=== PATIENT | male | born 1990 | race Caucasian/White ===

== ENCOUNTER 2019-04-24 19:30 | Emergency (ER) | payer OTHER, SELFPAY ==
[2019-04-24 19:45] VITALS: BP 150/95; PULSE 82; RESP 16; TEMP 36.8; O2SAT 99
--- NOTE | 2019-04-24 20:12 | ED.GENADULT ---
HPI - General Adult General Chief complaint: Nausea/Vomiting/Diarrhea Stated complaint: Vomiting/Diarrhea/Cough Time Seen by Provider: 04/24/19 20:12 Source: patient and RN notes reviewed Mode of arrival: ambulatory Limitations: no limitations History of Present Illness HPI narrative: 28-year-old male presents with complaints of body aches, intermittent abdominal pain/cramping, diarrhea, decrease appetite, and nausea for 1 day. Vomiting started this morning at approximately 01:30. Had about 6-7 episodes of emesis today without blood or coffee ground contents, last approximately @10:00am has had intermittently nausea. Diarrhea with intermittently abdominal pain/cramping, approximately 10 episodes of watery dark brown stools without blood. Exacerbating factors consist of eating and drinking. LBM 10:00am today, brown liquid stool without blood. Denies fever or chills. Denies headache, dizziness, back pain, and dysuria. Tolerating po liquids well. Remains active. Some parts of this dictation were generated by voice recognition software and may contain typographical and/or grammatical inaccuracies. Related Data Allergies Allergy/AdvReac Type Severity Reaction Status Date / Time No Known Allergies Allergy Unverified 06/18/18 15:39 Review of Systems Review of Systems: Narrative: CONSTITUTIONAL: Denies fever, chills, sweats. EYES: Denies visual changes, redness, discharge. ENT: Denies rhinorrhea, congestion, sore throat, otalgia. CARDIOVASCULAR: Denies chest pain, palpitations, edema. RESPIRATORY: Denies dyspnea, wheezing, cough. GASTROINTESTINAL: Complains of intermittent abdominal pain/cramping, vomiting, diarrhea, nausea, and decrease appetite. GENITOURINARY: Denies dysuria, hematuria, abnormal discharge. SKIN: Denies rash or itching. MUSCULOSKELETAL: Denies acute back pain, joint pain, or myalgia. NEUROLOGIC: Denies numbness or focal weakness. PSYCHIATRIC: Denies anxiety or depression. All systems reviewed & are unremarkable except as noted in HPI and below. [facility] Past Medical History Medical History (Updated 04/25/19 @ 00:01 by Lee Fajardo) Hypertension Surgical History Surgical History (Updated 04/24/19 @ 20:19 by KEREN Myers) History of hip surgery Right hip to due to septic hip Family History Family History (Updated 04/24/19 @ 20:19 by KEREN Myers) Other No significant family history Social History Social History (Updated 04/24/19 @ 20:20 by KEREN Myers) Smoking packs per day: 1 Smoking cigarettes per day: 20.0 Years smoked: 9 Smoking pack-years: 9.00 Smoking status: Current every day smoker Second hand tobacco smoke exposure: No Alcohol intake: current Alcohol use details: Occasional Substance use: current Substance use type: marijuana Living arrangements: with family Occupation/Education: occupation Gender identity (if verbalized by the patient): Male Comments At time of signature, I have reviewed and agree with nursing past medical, surgical, social, and family history. Please see nursing chart for further information. There is no relevant family history pertinent to the presenting complaint. Exam Narrative: Exam Narrative: GENERAL: This is a well-nourished, well-developed patient, in no apparent distress. Talks in full sentences without deficits and ambulates with steady gait without dyspnea. HEAD: normocephalic, atraumatic. EYES: PERRL. Sclera clear/white. Vision is grossly intact. MOUTH: Moist mucous membranes. THROAT: Mucous membranes moist, posterior pharynx clear. NECK: Neck supple, non-tender without lymphadenopathy, masses or thyromegaly. CARDIOVASCULAR: Regular rate and rhythm without murmurs, gallops, or rubs. RESPIRATORY: Clear to auscultation. Breath sounds equal bilaterally. No wheezes, rales, or rhonchi. GASTROINTESTINAL: Abdomen soft, no significant tenderness, nondistended. Bowel sounds are ac
== END 2019-04-24 20:33 | disposition home or self-care (01) ==
PROVIDERS: Emergency Provider Nurse Practitioner Family
DX: K52.9 Noninfective gastroenteritis and colitis, unspecified (principal); F17.210 Nicotine dependence, cigarettes, uncomplicated; I10 Essential (primary) hypertension
CPT/HCPCS: 99213; G0463

== ENCOUNTER 2019-07-22 17:59 | Emergency (ER) | payer OTHER, SELFPAY ==
[2019-07-22 18:10] VITALS: BP 161/104; PULSE 85; RESP 16; TEMP 37.3; O2SAT 98
--- NOTE | 2019-07-22 18:21 | ED.NAVMDI ---
HPI - Nausea/Vomiting/Diarrhea General Chief complaint: Nausea/Vomiting/Diarrhea Stated complaint: vomiting/diarrhea/nausea Time Seen by Provider: 07/22/19 18:18 Source: patient, RN notes reviewed and old records reviewed Mode of arrival: ambulatory Limitations: no limitations History of Present Illness HPI Narrative: Patient presents today complaining of nausea, vomiting, diarrhea, and chills since this morning with occasional abdominal cramping. Denies fever. Vomiting x3 today. Last episode was around 1530. 4 episodes of diarrhea with last episode around 1400. Denies any blood or mucus in the stool. He has tried no [id number] medications for symptoms prior to arrival. States he has not been able to keep down fluids today. MD elicited complaint: nausea, vomiting and diarrhea Related Data Allergies Allergy/AdvReac Type Severity Reaction Status Date / Time No Known Allergies Allergy Unverified 07/22/19 18:14 Review of Systems Review of Systems: Narrative: CONSTITUTIONAL: Denies body aches, fever, or sweats.+ Chills EYES: Denies visual changes, redness, or discharge. ENT: Denies rhinorrhea, congestion, sore throat, or otalgia. CARDIOVASCULAR: Denies chest pain, palpitations, or edema. RESPIRATORY: Denies cough or dyspnea. GASTROINTESTINAL: Denies abdominal pain. + Abdominal cramping, nausea, vomiting, diarrhea GENITOURINARY: Denies dysuria or hematuria. SKIN: Denies rash, itching, or wounds. MUSCULOSKELETAL: Denies back pain, joint pain, or myalgia. NEUROLOGIC: Denies headache, numbness, tingling, or weakness. PSYCH: Denies depression or anxiety. [facility] Past Medical History Medical History (Updated 07/22/19 @ 19:19 by Grace Mayen, [employer], ) Hypertension Surgical History Surgical History (Updated 04/24/19 @ 20:19 by KEREN Myers) History of hip surgery Right hip to due to septic hip Family History Family History (Updated 04/24/19 @ 20:19 by KEREN Myers) Other No significant family history Social History Social History (Updated 04/24/19 @ 20:20 by KEREN Myers) Smoking packs per day: 1 Smoking cigarettes per day: 20.0 Years smoked: 9 Smoking pack-years: 9.00 Smoking status: Current every day smoker Second hand tobacco smoke exposure: No Alcohol intake: current Substance use: current Substance use type: marijuana Gender identity (if verbalized by the patient): Male Comments At time of signature, I have reviewed and agree with nursing past medical, surgical, social and family history unless otherwise noted. Please see nursing chart for further information. There is no relevant family history pertinent to the presenting complaint Exam Narrative: Exam Narrative: GENERAL: Mildly ill-appearing, well-nourished, and in no acute distress. HEAD: Normocephalic, atraumatic. EYES: EOMI. No redness or drainage. Conjunctivae normal. ENT: Mucous membranes pink and moist. NECK: Normal AROM. Supple. No lymphadenopathy. CHEST: No respiratory distress. Clear to auscultation. HEART: Regular rate and rhythm. No murmur appreciated. Normal peripheral pulses. ABDOMEN: Soft, nontender, nondistended, normal active bowel sounds. MUSCULOSKELETAL: No bony tenderness. EXTREMITIES: Normal range of motion. No edema. SKIN: Warm, dry, no rash. Capillary refill normal. Normal skin turgor. NEURO: No focal deficits. Alert and oriented x3. Gait steady. PSYCH: Normal affect. No signs of depression or anxiety. Course Course Emergency Course: Patient states he is feeling a little better. He has been able to drink some clear soda without vomiting. Vital Signs Vital signs: Vital Signs Temperature 99.2 F 07/22/19 18:10 Pulse Rate 85 07/22/19 18:10 Respiratory Rate 16 07/22/19 18:10 Blood Pressure 161/104 H 07/22/19 18:10 Pulse Oximetry 98 07/22/19 18:10 Temperature 99.2 F 07/22/19 18:10 Pulse Rate 85 07/22/19 18:10 Respiratory Rate
[2019-07-22] MEDS: ONDANSETRON HCL ODT 4 MG TABLET 8 MG SUBLINGUAL (18:24)
== END 2019-07-22 19:23 | disposition home or self-care (01) ==
PROVIDERS: Emergency Provider Nurse Practitioner
DX: R11.2 Nausea with vomiting, unspecified (principal); R19.7 Diarrhea, unspecified; F17.210 Nicotine dependence, cigarettes, uncomplicated; I10 Essential (primary) hypertension; F12.90 Cannabis use, unspecified, uncomplicated
CPT/HCPCS: 99213; A9270; G0463

== ENCOUNTER 2019-09-18 17:14 | Emergency (ER) | payer OTHER, SELFPAY ==
--- NOTE | ~2019-09-18 | CT_ITS ---
EXAMINATION: CT abdomen pelvis w con EXAM DATE: 09/18/2019 19:51 INDICATION: Abdominal pain, cramping. Symptoms started this morning. TECHNIQUE: Spiral CT of the abdomen and pelvis was performed following intravenous injection of 100 m L Omnipaque 350. Axial, coronal and sagittal images were reviewed. The dose-length product (DLP) fo r this examination was 912.01 mGy-cm. The exposure was tailored according to patient size (auto mA e xposure control), and iterative reconstruction (ASIR) was used as additional dose reduction technique . Comparison is made to prior examination from 08/18/2016. FINDINGS: The liver, spleen, adrenal glands and pancreas are unremarkable. Gallbladder is unremarkab le. No biliary obstruction. Portal and splenic veins are patent. Kidneys enhance symmetrically. T here is no hydronephrosis. The prostate is unremarkable. The bladder is unremarkable. There is no retroperitoneal or pelvic lymphadenopathy. The appendix is normal. The stomach and small bowel are unremarkable. There is expected amount of c olonic stool. No free intraperitoneal gas. The heart is normal in size. There are no pericardial or pleural effusions. The lung bases are unremarkable. The bones are unremarkable. IMPRESSION: 1. No acute intra-abdominal findings. Reviewed, dictated and finalized at location A.
[2019-09-18 17:25] VITALS: BP 158/103; PULSE 104; RESP 19; TEMP 36.8; O2SAT 98
[2019-09-18 17:39] LABS: Basophils Absolute Auto 0.1 K/mm3 (0.0-0.1); Basophils Percent Auto 0.5 % (0.2-1.2); Eosinophils Absolute Auto 0.1 K/mm3 (0-0.3); Hematocrit 48.6 % (42.0-52.0); Hemoglobin 17.2 g/dL (14.0-18.0); Immature Granulocyte Absolute 0.03 K/mm3 (0.00-0.031); Immature Granulocyte Percent A 0.2 % (0-0.5); Lymphocytes Absolute Auto 3.49 K/mm3 (0.9-3.2); Lymphocytes Percent Auto 26.8 % (18.3-44.2); Mean Corpuscular HGB Conc 35.4 g/dl (32-36); Mean Corpuscular Hemoglobin 33.7 pg (26-34); Mean Corpuscular Volume 95.3 fl (80-100); Mean Platelet Volume 9.9 fl (7.4-10.4); Monocytes Absolute Auto 0.9 K/mm3 (0.1-0.6); Neutrophils Absolute Auto 8.4 K/mm3 (1.3-6.7); Neutrophils Percent Auto 64.5 % (45.5-73.1); Platelet Count Result 273 k/mm3 (150-375); Red Cell Distribution Width 12.3 % (11.5-14.5)
[2019-09-18 18:06] LABS: Add Urine Microscopic? YES; Appearance Urine Clear (Clear); Bilirubin Urine 1+ (Negative); Blood Urine Negative (Negative); Color Urine Amber (Yellow); Glucose Urine UA Negative (Negative); Ketones Urine Trace mg/dL (Negative); Leukocyte Esterase Ur Negative LEU/UL (Negative); Mucus Urine Heavy /lpf; Nitrate Urine Negative (Negative); Protein Urine 2+ mg/dL (Negative); RBC Urine 0-2 /hpf (0-2); WBC Urine 0-3 /hpf
[2019-09-18 18:26] LABS: Specific Grav Ur 1.034 (1.001-1.035)
[2019-09-18 18:39] VITALS: PULSE 93; RESP 18; TEMP 36.4; O2SAT 97
--- NOTE | 2019-09-18 19:01 | ED.GENADULT ---
HPI - General Adult General Chief complaint: Abdominal Pain Stated complaint: ABD Pain Time Seen by Provider: 09/18/19 18:43 Source: patient History of Present Illness HPI narrative: Patient is a 29 y/o male complaining of cramping abdominal pain since this morning. His pain is located in the epigastric area and rated at 5/10. There is no pain radiation. There is no alleviating or exacerbating factor. He has no fever, chill, nausea, vomiting or diarrhea. Related Data Allergies Allergy/AdvReac Type Severity Reaction Status Date / Time No Known Allergies Allergy Verified 09/18/19 17:28 Review of Systems Constitutional: Constitutional: Denies chills, Denies fever(s), Denies headache(s) and Denies weakness Eyes: Eyes: Denies blurry vision ENT: Denies headache(s) and Denies neck pain Cardiovascular: Cardiovascular: Denies chest pain and Denies dyspnea Respiratory: Respiratory: Denies cough and Denies dyspnea Gastrointestinal: Gastrointestinal: Reports abdominal pain, Denies diarrhea, Denies nausea and Denies vomiting Genitourinary: Genitourinary: Denies hematuria and Denies dysuria Musculoskeletal: Musculoskeletal: Denies back pain and Denies neck pain Neurologic: Denies headache(s) and Denies weakness PMFSH Past Medical History Medical History Hypertension Surgical History Surgical History History of hip surgery Right hip to due to septic hip Family History Family History Other No significant family history Social History Social History Smoking packs per day: 1 Smoking cigarettes per day: 20.0 Years smoked: 9 Smoking pack-years: 9.00 Smoking status: Current every day smoker Second hand tobacco smoke exposure: No Alcohol intake: current Substance use: current Substance use type: marijuana Gender identity (if verbalized by the patient): Male Exam Const: General: no acute distress and well developed Orientation/consciousness: oriented to person, oriented to place, oriented to time and patient oriented x3 HENMT: Head: normocephalic Ears: external ears normal General nose exam: Normal external nose present Eyes: General: appearance normal, both eyes and all related structures Conjunctivae: conjunctivae normal Neck: Neck: normal visual inspection and full ROM Chest: Chest palpation & inspection: normal inspection of the chest and no tenderness Resp: Effort & Inspection: normal respiratory effort Auscultation: clear to auscultation bilaterally Cardio: Rate: regular rate Rhythm: regular rhythm GI: GI Palp: No abdominal tenderness and Yes Soft to palpation Skin: General skin exam: normal color and turgor normal Neuro: General: oriented to person, oriented to place, oriented to time and patient oriented x3 Cognition (Neuro): normal cognition Extrem: General: normal to inspection, full ROM and no pedal edema Psych: Appearance: grossly normal Mental Status: mental status grossly normal Affect: normal affect Course Vital Signs Vital signs: Vital Signs Temperature 36.8 C 09/18/19 17:25 Pulse Rate 104 H 09/18/19 17:25 Respiratory Rate 19 09/18/19 17:25 Blood Pressure 158/103 H 09/18/19 17:25 Pulse Oximetry 98 09/18/19 17:25 Temperature 36.4 C 09/18/19 18:39 Pulse Rate 91 09/18/19 21:20 Respiratory Rate 17 09/18/19 21:20 Blood Pressure 161/115 H 09/18/19 21:20 Pulse Oximetry 98 09/18/19 21:20 Medical Decision Making Vital Signs Vital Signs: Vital Signs Temperature 36.8 C 09/18/19 17:25 Pulse Rate 104 H 09/18/19 17:25 Respiratory Rate 19 09/18/19 17:25 Blood Pressure 158/103 H 09/18/19 17:25 Pulse Oximetry 98 09/18/19 17:25 Temperature 36.4 C 09/18/19 18:39 Pulse Rate 91 09/18/19 21:20 Respirator
[2019-09-18] MEDS: BELLADONNA ALK/PHENOB ELIX 10 ML, MAG HYDROX/ALUMINUM HYD/SIMETH 30 ML, LIDOCAINE HCL 2... PO (19:02)
[2019-09-18 19:06] VITALS: PULSE 87; RESP 18; O2SAT 97
--- NOTE | 2019-09-18 19:11 | PC.NURSE ---
REPORT GIVEN BEDSIDE TO ZULEYKA HAGER AT THIS TIME, SHE HAS ASSUMED PT CARE.
[2019-09-18 19:31] LABS: Alanine Aminotransferase 83 U/L (4-50); Albumin Level 4.4 g/dL (3.5-5.1); Alkaline Phosphatase 62 U/L (38-126); Anion Gap 11.3 mmol/L (7-16); Aspartate Amino Transferase 47 U/L (17-59); Bilirubin,Total 0.5 mg/dL (0.2-1.3); Blood Urea Nitrogen 6 mg/dL (9-20); Calcium 9.1 mg/dL (8.4-10.2); Carbon Dioxide 25 mmol/L (22-30); Chloride 104 mmol/L (98-107); Estimated CRCL calculation 196 ml/min; Estimated Glomerular Filt Rate > 60; Glucose 94 mg/dL (75-110); Lipase 24 U/L (23-300); Potassium 3.3 mmol/L (3.4-5.0); Sodium 137 mmol/L (137-145)
[2019-09-18] MEDS: POTASSIUM CHLORIDE 20 MEQ TABLET PO (20:20)
[2019-09-18 20:21] VITALS: BP 148/114; PULSE 92; RESP 17; O2SAT 99
[2019-09-18 21:20] VITALS: BP 161/115; PULSE 91; RESP 17; O2SAT 98
== END 2019-09-18 21:20 | disposition home or self-care (01) ==
PROVIDERS: General Practice; Emergency Provider Emergency Medicine
DX: I10 Essential (primary) hypertension (principal); R10.13 Epigastric pain
CPT/HCPCS: 36415; 74177; 80053; 81001; 83690; 85025; 99284; A9270; Q9967

== ENCOUNTER 2019-09-26 16:36 | Emergency (ER) | payer OTHER, SELFPAY ==
[2019-09-26 16:49] VITALS: BP 162/106; PULSE 100; RESP 18; TEMP 37.5; O2SAT 100
--- NOTE | 2019-09-26 16:50 | ED.DENTAL ---
HPI - Dental/Oral General Chief complaint: Dental/Oral Stated complaint: Tooth Ache Time Seen by Provider: 09/26/19 16:51 Source: patient and RN notes reviewed Mode of arrival: ambulatory Limitations: no limitations History of Present Illness HPI Narrative: 29-year-old male presents with concern for dental pain. Reports left upper dental pain. Reports a broken tooth that he broke approximately 1 month ago. Reports last dose appointment in 1 month. Reports right upper facial swelling, denies foul taste in his mouth, fever, malaise, body aches. Reports he has been taking ibuprofen MD Complaint: tooth pain Teeth map: 1. Broken tooth Related Data Home Medications Medication Instructions Recorded Confirmed Unknown Htn Med. 09/26/19 Allergies Allergy/AdvReac Type Severity Reaction Status Date / Time No Known Allergies Allergy Verified 09/18/19 17:28 Review of Systems Review of Systems: Narrative: CONSTITUTIONAL: Denies malaise, chills, sweats, or fever. EYES: Denies visual changes ENT: Reports left upper dental pain, facial swelling CARDIOVASCULAR: Denies chest pain, palpitations RESPIRATORY: Denies cough or dyspnea. SKIN: Denies rash or itching. MUSCULOSKELETAL: Denies myalgia. NEUROLOGIC: Denies headache All systems reviewed & are unremarkable except as noted in HPI and below PMFSH Social History Social History Smoking packs per day: 1 Smoking cigarettes per day: 20.0 Years smoked: 9 Smoking pack-years: 9.00 Smoking status: Current every day smoker Second hand tobacco smoke exposure: No Alcohol intake: current Substance use: current Substance use type: marijuana Gender identity (if verbalized by the patient): Male Comments At time of signature, agree with nursing past medical, surgical, social and family history. There is no relevant family history pertinent to the presenting complaint Exam Narrative: Exam Narrative: GENERAL: Well-appearing, well-nourished, and in no acute distress. HEAD: Normocephalic, atraumatic. EYES: PERRLA, conjunctivae clear ENT: Nares clear. Mucous membranes moist. Oropharynx without erythema edema, or lesions. Left upper dental swelling, tooth #15 broken with surrounding erythema and edema, no periapical abscess noted NECK: Supple. CHEST: No respiratory distress. Clear to auscultation. No bony deformities, no asymmetry. Speaks in full sentences. HEART: Regular rate and rhythm. No murmur heard. SKIN: Warm, dry, no rash. NEURO: Alert and oriented x3. PSYCH: Normal mood and affect Course Course Emergency Course: Patient is aware of diagnosis, understands and agrees to treatment plan. Anticipatory guidance given. Patient agrees to follow-up as directed and is aware of reasons to seek care at the emergency department. Portions of this record may have been created with voice recognition software Vital Signs Vital signs: Vital Signs Temperature 99.5 F 09/26/19 16:49 Pulse Rate 100 09/26/19 16:49 Respiratory Rate 18 09/26/19 16:49 Blood Pressure 162/106 H 09/26/19 16:49 Pulse Oximetry 100 09/26/19 16:49 Temperature 99.5 F 09/26/19 16:49 Pulse Rate 100 09/26/19 16:49 Respiratory Rate 18 09/26/19 16:49 Blood Pressure 162/106 H 09/26/19 16:49 Pulse Oximetry 100 09/26/19 16:49 Reviewed. Patient has history of hypertension MDM - Dental/Oral MDM Narrative Medical decision making narrative: Patients pain and complaint coupled with physical findings are consistant with dentalgia. There are no focal signs of space occupying lesions that are compromising to the airway; no dysphagia, odynophagia, dysphonia, or dyspnea. No uvular deviation or soft palate edema. Patient is non-toxic appearing. The floor of the mouth is soft with no signs of Nelson's Angina; no induration below mandible, no neck pain. Patient is without trismus or drooling and able to swallow secretions. Patient i
== END 2019-09-26 17:08 | disposition home or self-care (01) ==
PROVIDERS: Emergency Provider Nurse Practitioner
DX: K04.7 Periapical abscess without sinus (principal); F17.210 Nicotine dependence, cigarettes, uncomplicated
CPT/HCPCS: 99213; G0463